=== PATIENT | female | born 1970 | race Asian ===

== ENCOUNTER → 2016-08-29 | Outpatient (CLI) | payer OTHER ==
[2016-08-29 14:26] LABS: ESTRADIOL 36.8 PG/ML; FOLLICLE STIMULATING HORMONE 4.6 mIU/mL; LUTEINIZING HORMONE 3.7 mIU/mL; PROGESTERONE 0.2 NG/ML
[2016-08-29 14:29] LABS: HCG, SERUM QUANTITATIVE < 1.0 MIU/ML
== END ==
LOC: M LAB 13:34
PROVIDERS: ATTEND Obstetrics & Gynecology Reproductive Endocrinology
DX: N97.9 Female infertility, unspecified (principal)

== ENCOUNTER → 2016-09-05 | Outpatient (CLI) | payer OTHER ==
[2016-09-05 11:15] LABS: ESTRADIOL 1297.4 PG/ML; PROGESTERONE 0.4 NG/ML
--- NOTE | 2016-09-05 12:40 | REP ---
Clinical: Infertility. Technique: Transvaginal examination with color Doppler evaluation of the ovaries. Findings: Retroverted heterogeneous uterus measures 8.6 x 6.0 x 6.1 cm with multiple anterior subserosal fibroids are identified measuring up to 2.3 cm maximal diameter. Endometrial complex measures 14 mm thickness. Right ovary measures 3.6 x 2.3 x 2.6 cm with five follicles measuring between 10 mm and 14 mm maximal diameter and approximately 10 sub centimeter follicles. Right ovary resistive index equals 0.54. Left ovary measures 3.8 x 2.8 x 3.2 cm with six follicles measuring between and and 15 mm maximal diameter and approximately eight sub centimeter follicles. Left ovary resistive index equals 0.44. Impression: Heterogeneous retroverted uterus with multiple subserosal fibroids up to 2.3 cm. Bilateral ovaries with follicles as described above. Signed by Edvin Cline MD 09/05/2016 12:32 P
== END ==
LOC: M RAD 09:56 → M LAB 09:56
PROVIDERS: ATTEND Obstetrics & Gynecology Reproductive Endocrinology
DX: E28.9 Ovarian dysfunction, unspecified (principal); N85.4 Malposition of uterus; D25.2 Subserosal leiomyoma of uterus

== ENCOUNTER → 2016-09-07 | Outpatient (CLI) | payer OTHER ==
--- NOTE | 2016-09-07 10:18 | REP ---
ENDOVAGINAL PROBE PELVIC ULTRASOUND: 09/07/2016 CLINICAL HISTORY: Infertility. COMPARISON: 09/05/2016 FINDINGS: Sonographic evaluation shows the uterus slightly retroverted, measuring 8.9 x 5.7 x 6.6 cm. The endometrial stripe is centrally located with a thickness of up to 10.5 mm. No fluid in the endometrial cavity or endocervical canal. Multiple fibroids again seen, the largest 2.1 x 1.8 cm, 1.7 x 1.7 cm, and 2.1 x 1.7 cm, all unchanged. No fluid in the cul-de-sac. The right ovary is 3.8 x 2.6 x 3.2 cm. There are six follicles over a centimeter with the measurements of 16.5 mm x 14.7, 16.4 x 12.6 mm, 14.6 x 14.6 mm, 13.9 x 5 mm, 11.9 x 11.8 mm, and 10.2 x 10 mm. There are an additional 14 follicles in the 3.6 to 9.6 mm range. No adjacent free fluid. The left ovary has 10 follicles over a centimeter. It measures 4.7 x 3 x 3.7 cm. The largest of these 10 follicles is 18.6 x 11.3 cm. Others ranging from 10.2 to 16.9 cm are present. There are an additional four follicles in the range of 3.2 to 8.7 mm. The technologist's worksheet has been sent by facsimile. IMPRESSION: Six follicles over a centimeter on the right, and 10 follicles over a centimeter in the left ovary. The retroverted uterus has a homogeneous endometrial stripe thickness of 10.5 mm, and fibroids again seen. Signed by Hema Beckman MD 09/07/2016 08:15 P
[2016-09-07 10:24] LABS: ESTRADIOL 2795.2 PG/ML; PROGESTERONE 0.6 NG/ML
== END ==
LOC: M RAD 08:07
PROVIDERS: ATTEND Obstetrics & Gynecology Reproductive Endocrinology
DX: E28.9 Ovarian dysfunction, unspecified (principal)

== ENCOUNTER 2016-10-30 10:04 | Emergency (ER) | payer OTHER ==
[~2016-10-30] VITALS: Ht 157.5 cm; Wt 59.0 kg
[2016-10-30 10:05] VITALS: BP 115/76
[2016-10-30] MEDS ORDERED: MULT1CHW26 PO (10:23)
[2016-10-30] MEDS ORDERED: AMOX500C PO (11:31)
== END 2016-10-30 11:35 | disposition home or self-care (01) ==
LOC: M ED 11:03
DX: J02.0 Streptococcal pharyngitis (principal)

== ENCOUNTER → 2018-01-19 | Outpatient (CLI) | payer OTHER | LOC: M RAD 09:58 | DX: Z12.31 Encounter for screening mammogram for malignant neoplasm of breast (principal) | CPT/HCPCS: 77067 ==